=== PATIENT | female | born 1995 ===

== ENCOUNTER 2017-06-20 20:13 | Emergency (ER) | payer OTHER ==
[~2017-06-20] VITALS: Ht 162.6 cm; Wt 63.4 kg
[2017-06-20 20:19] VITALS: Ht 162.6 cm; Wt 63.4 kg
--- NOTE | 2017-06-20 21:28 | DIAGNOSTIC IMAGING REPORT ---
L FOOT MIN 3 VIEWS ROUTINE CLINICAL HISTORY: 22 years-old Female presenting with LEFT foot pain, EVAL FX. TECHNIQUE: Frontal, oblique, and lateral views of the left foot were obtained. COMPARISON: None. FINDINGS: Tiny fracture fragment suggested along the dorsum of the navicular at the level of the talonavicular articulation. This is only visualized on lateral view. No advanced degenerative change. No radiographic soft tissue abnormality. IMPRESSION: Findings suspicious for tiny avulsion fracture at the dorsal aspect of the navicular. Correlate for point tenderness. Electronically signed by: John Shelton M.D. 06/20/2017 9:26 PM Dictated Date/Time: 06/20/2017 9:25 PM
--- NOTE | 2017-06-20 21:39 | EMERGENCY ROOM VISIT NOTE ---
ED Visit Note First contact with patient: 20:30 CHIEF COMPLAINT: Left foot injury 1 day ago HPI: Patient is a 22-year-old female who presents emergency department for evaluation of dorsolateral left foot pain after an inversion injury yesterday. She was coming down the steps when she missed a step, twisting her left foot and ankle, with pain in the outside of her foot. She has wrapped with an Mohan wrap, applied ice, elevated and taken ibuprofen. She has been walking on the foot, and rates her pain an 8/10. She denies any ankle pain. REVIEW OF SYSTEMS: Review of systems as per HPI. All other systems reviewed were negative. At least 6 systems reviewed. PMH: Electronic medical records are reviewed and summarized as above/below. See Problem List. SOCIAL HISTORY: Patient is a college student from [place] who lives in a dorm locally. Non-smoker. Denies alcohol use. PHYSICAL EXAM: Vital Signs: Reviewed Nurse's notes. CONSTITUTIONAL: Pleasant, well-appearing 22-year-old female who is awake and alert and in no acute distress. MUSCULOSKELETAL: Examination of the left foot notes dorsal lateral soft tissue swelling, ecchymosis, with tenderness to palpation over the third, fourth and fifth metatarsals, primarily proximally. No pain over the first metatarsal and Lisfranc joint is negative. There is no pain over the medial or lateral malleolus or over the lateral ankle ligaments. Ankle is stable. No obvious deformity. The skin is intact. The foot is warm and well-perfused and sensation is intact. EMERGENCY DEPARTMENT COURSE: X-rays of the left foot were obtained. Mohan wrap was reapplied. Patient was placed in a postoperative shoe. Supportive care measures were discussed. She was encouraged to continue to ice and elevate, and use ibuprofen for pain, perform gentle stretching and range of motion exercises and return to normal activity. Differential diagnoses entertained included foot versus ankle sprain or fracture, LisFranc injury, among others. L FOOT MIN 3 VIEWS ROUTINE CLINICAL HISTORY: 22 years-old Female presenting with LEFT foot pain, EVAL FX. TECHNIQUE: Frontal, oblique, and lateral views of the left foot were obtained. COMPARISON: None. FINDINGS: Tiny fracture fragment suggested along the dorsum of the navicular at the level of the talonavicular articulation. This is only visualized on lateral view. No advanced degenerative change. No radiographic soft tissue abnormality. IMPRESSION: Findings suspicious for tiny avulsion fracture at the dorsal aspect of the navicular. Correlate for point tenderness. Allergies Coded Allergies: No Known Allergies (Unverified , 06/20/17) Vital Signs Date Time Temp Pulse Resp B/P (MAP) Pulse Ox O2 Delivery O2 Flow Rate FiO2 06/20/17 20:19 36.9 103 20 125/73 99 Room Air Departure Information Impression Primary Impression: Sprain of left foot Referrals [facility] (PCP) Patient Instructions My [facility] Additional Instructions Ibuprofen(Motrin, Advil) may be used for fever or pain. Use 600mg every six hours as needed. Take with food. Avoid using more than 2400mg in a 24 hour period. Do not use 2400mg per day for more than three consecutive days without physician direction. Prolonged inappropriate use can lead to stomach upset or ulcers. This medication can be taken if you need to drive, work, or perform activities which may be dangerous when taking narcotic pain medication. (AND/OR) Acetaminophen(Tylenol) may be used for fever or pain. Use 1000mg every six hours as needed. Avoid using more than 3000mg in a 24 hour period. This medication can be taken if you need to drive, work, or perform activities which may be dangerous when taking narcotic pain medication. Ice compresses for 20 minutes at a time four times daily for 2-3 days. Use the postoperative shoe and crutches as instructed. Rest and elevate your injury. Continue current medications. Return to the ER immediately for any numbness, tingling, severe pain, extreme swelling in the extremity or as needed. Followup with S if no improvement in 5-7 days. Problem Qualifiers Primary Impression: Sprain of left foot Encounter type: initial encounter Qualified Codes: S93.602A - Unspecified sprain of left foot, initial encounter
[2017-06-20 22:04] VITALS: BP 125/73; PULSE 103; TEMP 36.9; O2SAT 99
== END 2017-06-20 22:06 | disposition home or self-care (01) ==
LOC: C.EDB 20:16 → C.EDD 22:06
DX: S93.602A Unspecified sprain of left foot, initial encounter (principal); X50.9XXA Other and unspecified overexertion or strenuous movements or postures, initial encounter